=== PATIENT | female | born 1970 | race Hispanic/Latino ===

== ENCOUNTER 2020-04-25 15:07 | Emergency (ER) | payer BC, SELFPAY ==
[2020-04-25 15:31] VITALS: PULSE 89; RESP 16; TEMP 37.3; O2SAT 99
--- NOTE | 2020-04-25 15:41 | ED.GENADULT ---
HPI - General Adult General Chief complaint: Headache Stated complaint: Headache,Swollen face Source: patient and RN notes reviewed Mode of arrival: ambulatory Limitations: no limitations History of Present Illness HPI narrative: 49-year-old female presents with concern for sinus swelling, nasal congestion, pressure, pain, occasional cough, nasal burning for 1 week. Reports she was tested for Covid on Saturday, received negative results this morning. Reports she has been taking Benadryl with little relief. She denies fever, body aches, chills, shortness of breath, loss of sense of taste or smell MD complaint: Nasal congestion Related Data Allergies Allergy/AdvReac Type Severity Reaction Status Date / Time No Known Allergies Allergy Verified 04/25/20 15:20 Review of Systems Review of Systems: Narrative: CONSTITUTIONAL: Denies malaise, chills, sweats, or fever. EYES: Denies visual changes, redness, or discharge. ENT: Reports rhinorrhea, congestion, sinus pain. Denies otalgia and sore throat. CARDIOVASCULAR: Denies chest pain, palpitations, or edema. RESPIRATORY: Reports cough. Denies dyspnea. GASTROINTESTINAL: Denies abdominal pain, nausea, vomiting, diarrhea SKIN: Denies rash or itching. MUSCULOSKELETAL: Denies myalgia. NEUROLOGIC: Denies headache. All systems reviewed & are unremarkable except as noted in HPI and below PMFSH Family History Family History (Updated 12/24/12 @ 14:05 by DOCTOR UNKNOWN) Other Carcinoma of colon Social History Social History Smoking status: Never smoker Alcohol intake: never Gender identity (if verbalized by the patient): Female Comments At time of signature, agree with nursing past medical, surgical, social and family history. There is no relevant family history pertinent to the presenting complaint Exam Narrative: Exam Narrative: GENERAL: Well-appearing, well-nourished, and in no acute distress. HEAD: Normocephalic EYES: PERRLA, conjunctivae clear ENT: Nares clear, turbinates edematous and erythematous, clear discharge. Mucous membranes moist. TM pearly ocampo with dull light reflex bilaterally; no tragal tenderness. Oropharynx not erythematous without lesions. Tonsils not enlarged and without exudate, no drooling, no hoarseness, no trismus, uvula midline. NECK: Supple. No lymphadenopathy CHEST: Clear to auscultation, breath sounds equal. No wheezing, rhonchi, rales, or stridor. No respiratory distress, speaks in full sentences. HEART: Regular rate and rhythm. No murmur heard. SKIN: Warm, dry, no rash. NEURO: Alert and oriented x3. PSYCH: Normal mood and affect Course Course Emergency Course: Patient is aware of diagnosis, understands and agrees to treatment plan. Anticipatory guidance given. Patient agrees to follow-up as directed and is aware of reasons to seek care at the emergency department. Portions of this record may have been created with voice recognition software Vital Signs Vital signs: Vital Signs Temperature 99.2 F 04/25/20 15:31 Pulse Rate 89 04/25/20 15:31 Respiratory Rate 16 04/25/20 15:31 Pulse Oximetry 99 04/25/20 15:31 Temperature 99.2 F 04/25/20 15:31 Pulse Rate 89 04/25/20 15:31 Respiratory Rate 16 04/25/20 15:31 Pulse Oximetry 99 04/25/20 15:31 Reviewed. Patient has been instructed to follow up with her primary care provider within the next week regarding her elevated blood pressure today. Medical Decision Making MDM Narrative Medical decision making narrative: Differential diagnosis considered: B[place]aneg[place] virus, strep pharyngitis, allergic rhinitis, upper respiratory tract infection, sinusitis, rhinosinusitis, nasopharyngitis. viral pharyngitis, otitis media, otitis externa, pneumonia, bronchitis, viral cough syndrome, viral syndrome, and influenza. Exam findings show no acute concerns or changes; patient is non-toxic appearing and is in no distress. Patient is appropriate for outpatient treatment and follow-up. Vital
[2020-04-25 16:00] VITALS: BP 135/90
== END 2020-04-25 16:00 | disposition home or self-care (01) ==
PROVIDERS: Emergency Provider Nurse Practitioner
DX: J01.90 Acute sinusitis, unspecified (principal)
CPT/HCPCS: 99213; G0463

== ENCOUNTER 2021-05-16 17:16 | Emergency (ER) | payer BC, SELFPAY ==
[2021-05-16 17:20] VITALS: BP 134/88; PULSE 101; RESP 16; TEMP 37.7; O2SAT 100
--- NOTE | 2021-05-16 17:20 | ED.FEMALEGU ---
HPI - Female Genitourinary General Chief complaint: Urogenital-Female Stated complaint: uti Time Seen by Provider: 05/16/21 17:25 Source: patient, family (), RN notes reviewed and old records reviewed Mode of arrival: ambulatory Limitations: no limitations History of Present Illness HPI Narrative: 50-year-old female presents to the [facility] with complaints of urgency, burning and frequency with urination that started this morning. Denies new abdominal pain. Denies nausea vomiting. Denies fevers. MD elicited complaint: UTI Related Data Allergies Allergy/AdvReac Type Severity Reaction Status Date / Time No Known Allergies Allergy Verified 04/25/20 15:20 Review of Systems Review of Systems: All systems reviewed & are unremarkable except as noted in HPI and below Constitutional: Constitutional: Reports no additional constitutional complaints, Denies chills and Denies fatigue Eyes: Eyes: Reports no additional eye complaints ENT: Reports system reviewed and no additional complaints, except as documented Cardiovascular: Cardiovascular: Reports no additional cardiovascular complaints and Denies chest pain Respiratory: Respiratory: Reports no additional respiratory complaints, Denies cough, Denies dyspnea and Denies wheezing Gastrointestinal: Gastrointestinal: Reports no additional gastrointestinal complaints, Denies abdominal pain, Denies diarrhea, Denies nausea and Denies vomiting Genitourinary: Genitourinary: Reports as per HPI, Reports hematuria, Reports nocturia, Reports dysuria, Denies pelvic pain, Denies flank pain and Denies vaginal discharge Musculoskeletal: Musculoskeletal: Reports no additional musculoskeletal complaints and Denies back pain Integumentary/Breasts: Skin/Breast: Reports system reviewed and no additional complaints, except as docu Neurologic: Reports system reviewed and no additional complaints, except as documented Psychiatric: Psychiatric: Reports no additional psychiatric complaints Endocrine: Endocrine: Denies fatigue Allergic/Immunologic: Allergic/Immunologic: Reports no additional allergic/immunologic complaints PMF Past Medical History Medical History Patient denies medical problems Surgical History Surgical History No pertinent past surgical history Family History Family History Other Carcinoma of colon Social History Social History Smoking status: Never smoker Alcohol intake: never Gender identity (if verbalized by the patient): Female Comments At the time of my signature, I reviewed and agree with the nursing past medical, surgical, social, and family history. There is no relevant family history pertinent to the patient complaint. Exam Const: General: healthy appearing, no acute distress and alert Nutritional Appearance: well nourished Orientation/consciousness: patient oriented x3 Limitations: no limitations HENMT: Head: normal to inspection Ears: external ears normal Eyes: Conjunctivae: conjunctivae normal Pupils: Equal, round and reactive pupils present Neck: Neck: normal visual inspection, no lymphadenopathy and no meningeal signs Chest: Chest palpation & inspection: normal inspection of the chest and abnormal inspection of the chest Resp: Effort & Inspection: normal respiratory effort Auscultation: clear to auscultation bilaterally Cardio: Rate: regular rate Rhythm: regular rhythm GI: GI Palp: Yes Soft to palpation, No Tenderness to palpation present (GI), No Guarding due to palpation present (GI) and No Rebound tenderness present : General: Yes no CVA tenderness Back/Spine/Pelvis: Back: no CVA tenderness Skin: General skin exam: normal color Rashes: no rashes Wounds: no wounds Neuro: General: patient oriented x3, moves all extremitie
== END 2021-05-16 17:40 | disposition home or self-care (01) ==
PROVIDERS: Emergency Provider Nurse Practitioner
DX: N39.0 Urinary tract infection, site not specified (principal)
CPT/HCPCS: 81003; 87086; 87088; 99213; G0463

== ENCOUNTER → 2023-04-06 13:57 | Outpatient (CLI) | payer BC, SELFPAY ==
--- NOTE | ~2023-04-06 | XR_ITS ---
EXAM: XR humerus LT DATE: 04/06/2023 14:25 HISTORY: lump left proximal posterior humerus ? etiology . COMPARISON: CT [facility] 11/22/2014. FINDINGS: Normal mineralization. No fracture or dislocation. No lytic or blastic lesion. Mild degene rative change in the left shoulder and elbow. No erosion or periosteal change. Suggestion of an ovoid soft tissue density 4.5 x 5.7, which? ? Were dedicated? One of my workstation for digital is. Cm soft tissue mass, possibly deep to or asso ciated with the deltoid musculature, without associated calcification or adjacent osseous change. IMPRESSION: Possible 4.5 x 5.7 cm soft tissue mass deep to or associated with the left deltoid muscul ature, correlate with exam findings and consider soft tissue ultrasound for further evaluation. Reviewed, dictated and finalized at location K. [employer] IMPRESSION: Possible 4.5 x 5.7 cm soft tissue mass deep to or associated with t he left deltoid musculature, correlate with exam findings and consider soft tis shell ultrasound for further evaluation.
== END ==
PROVIDERS: PCP Emergency Medicine; Visit Provider Emergency Medicine
DX: R22.32 Localized swelling, mass and lump, left upper limb (principal)
CPT/HCPCS: 73060

== ENCOUNTER 2023-11-08 13:11 | Outpatient (CLI) | payer BC, SELFPAY ==
--- NOTE | ~2023-11-08 | CT_ITS ---
EXAMINATION: CT UE LT w con DATE: 11/08/2023 13:52 INDICATION: Localized swelling, mass and lump at the left upper limb TECHNIQUE: High resolution computed tomography (CT) of the left shoulder was performed with 100 mL Om nipaque-350 intravenous contrast. Additional sagittal and coronal reconstructions were performed. Aut omated exposure control and iterative reconstruction technique were employed. The dose-length product was 1323.59 mGy-cm. COMPARISON: None FINDINGS: There is a 4.4 x 3.5 x 4.2 cm mass within the posterior left deltoid muscle. The mass is also subtly lower density than the surrounding muscle and with an eccentric region of enhancement with appearance suggesting a nidus of small serpiginous vessels. The mass is from the surrounding muscle b y a thin fat plane. Remaining muscles of the visualized shoulder girdle and upper arm are unremarkabl e. No pathologically enlarged left axillary lymphadenopathy. Small bone island at the left humeral he ad. Bones are otherwise unremarkable with normal alignment and no fracture. Mild left acromioclavicul ar osteoarthritis. Glenohumeral joint space is normal. IMPRESSION: 1. Nonspecific 4.4 x 3.5 x 4.2 cm intramuscular mass within the posterior left deltoid muscle concern ing for neoplasm which could be either benign or malignant. Recommend orthopedic oncology consultatio n. Reviewed, dictated and finalized at location A. IMPRESSION: 1. Nonspecific 4.4 x 3.5 x 4.2 cm intramuscular mass within the posterior left deltoid muscle concerning for neoplasm which could be either benign or malignan t. Recommend orthopedic oncology consultation.
== END 2023-11-08 13:12 | disposition home or self-care (01) ==
LOC: ANHIMG 13:12
PROVIDERS: PCP Emergency Medicine; Visit Provider Surgery
DX: R22.32 Localized swelling, mass and lump, left upper limb (principal)
CPT/HCPCS: 73201; Q9967